=== PATIENT | female | born 1995 | race Caucasian/White ===

== ENCOUNTER 2022-10-27 04:20 | Emergency (ER) | payer OTHER ==
[2022-10-27 04:52] LABS: CHLORIDE,CL 103 mmol/L (98-107); ESTIMATED GFR 124 mL/min (>=60); SODIUM,NA 141 mmol/L (136-145)
== END 2022-10-27 05:15 | disposition left against medical advice (07) ==
LOC: LL.ED 04:20
DX: F10.929 Alcohol use, unspecified with intoxication, unspecified (principal); Z88.5 Allergy status to narcotic agent; Z79.899 Other long term (current) drug therapy
CPT/HCPCS: 36415; 80053; 80307; 85025; 99284

== ENCOUNTER 2023-03-01 18:00 | Emergency (ER) | payer OTHER ==
[2023-03-01] MEDS ORDERED: Diphtheria,Pertussis(Acell),Tetanus Vaccine 0.5 ML Syringe IM ONE (18:09)
== END 2023-03-01 18:25 | disposition home or self-care (01) ==
LOC: LL.ED 18:00
DX: S60.511A Abrasion of right hand, initial encounter (principal); Z23 Encounter for immunization; Z88.5 Allergy status to narcotic agent; W26.8XXA Contact with other sharp object(s), not elsewhere classified, initial encounter
CPT/HCPCS: 90471; 90715; 99282-25; 99283